=== PATIENT | male | born 1950 | race Caucasian/White ===

== ENCOUNTER 2023-04-25 09:40 | Emergency (ER) | payer MEDICARE, OTHER ==
[~2023-04-25] VITALS: Ht 182.9 cm; Wt 105.3 kg
[2023-04-25] MEDS ORDERED: ELIQ2.5T PO (09:49)
[2023-04-25] MEDS ORDERED: AMLO25TA PO (09:49)
[2023-04-25 12:44] LABS: HEMATOCRIT 42.6 % (42.0-52.0); HEMOGLOBIN 14.4 g/dl (13.5-17.5); MEAN CORPUSCULAR HEMOGLOBIN 32.1 pg (27.0-33.0); MEAN CORPUSCULAR HGB CONC 33.8 g/dl (32.0-36.5); MEAN CORPUSCULAR VOLUME 95.1 fl (80.0-96.0); PLATELET COUNT, AUTOMATED 151 10^3/uL (150-450); RED BLOOD COUNT 4.48 10^6/uL (4.30-6.10); WHITE BLOOD COUNT 5.3 10^3/uL (4.0-10.0)
[2023-04-25] MEDS ORDERED: ISOVUE-370 76% 100ML VIAL As Ordered ONE (12:49)
[2023-04-25 13:03] LABS: INR 1.12; PROTHROMBIN TIME 14.6 SECONDS (12.5-14.5)
[2023-04-25 13:04] LABS: PARTIAL THROMBOPLASTIN TIME 29.6 SECONDS (24.8-34.2)
[2023-04-25 14:40] VITALS: BP 128/81; TEMP 97.2; O2SAT 98
== END 2023-04-25 14:53 | disposition home or self-care (01) ==
LOC: M ED 09:40
DX: N21.0 Calculus in bladder (principal); I10 Essential (primary) hypertension; Z86.711 Personal history of pulmonary embolism; Z79.01 Long term (current) use of anticoagulants; Z91.013 Allergy to seafood; Z79.899 Other long term (current) drug therapy
CPT/HCPCS: 36415; 74178; 80047; 81001; 85027; 85610; 85730; 99284; Q9967